=== PATIENT | female | born 1955 | race Caucasian/White ===

== ENCOUNTER 2016-05-04 12:25 | Emergency (ER) | payer MEDICAID, OTHER ==
[~2016-05-04 12:25] MED LIST: /ADVA50050 IN; /FAMO2TA PO; /METO25TAB PO; /PANT40TA; ACET50TA PO; ACET65TA OR; ACTIVASE IV; ADV250INH INH; ALBU83IN IN; ALLO100T; ALLO100T OR; ASPI81TA83 OR; B COTAB PO; BABY81CH; CAPT12.5; COLA100C2; COLA100C2 OR; COMBAER6 INH; EMLA2.5C TOP; FEBU40TA PO; FERR325T; HYDR25TA7; IRON SUCROSE IV; LASIX; LEVO100T7; LEVO250T PO; LOPR100T; LOPR50TA OR; OMEP20TA7 OR; SYNT100T OR; VITAMIN D50000 UNT OR; [UNRECOGNIZED DRUG - CODE] PO; [UNRECOGNIZED DRUG - REMARK]; [UNRECOGNIZED DRUG - REMARK]; [UNRECOGNIZED DRUG - REMARK]; aranesp OR; epogen IV; renvela OR
--- NOTE | 2016-05-04 13:20 | REP ---
Clinical: Trauma. Fall. Technique: AP, lateral, bilateral oblique views of the right wrist. Findings: Acute Colles' fracture of the distal radius and small ulnar styloid fracture appreciated. Underlying osteopenia and degenerative changes. Impression: Acute Colles' fracture of the distal radius and small ulnar styloid fracture. Signed by Aj Lui MD 05/04/2016 01:12 P
[2016-05-04] MEDS ORDERED: ACETAMINOPHEN 325 MG TAB As Ordered ONE (14:04)
--- NOTE | 2016-05-04 14:50 | REP ---
CT Head without contrast HISTORY: Injury COMPARISON: None There is no intraparenchymal hemorrhage, acute infarct, mass or midline shift. The ventricular system and cortical sulci are dilated consistent with minimal volume loss. There is no extra cerebral collection. There is no fracture. The visualized sinuses are clear. IMPRESSION: Minimal volume loss. Signed by Baldomero Casillas MD 05/04/2016 02:42 P
--- NOTE | 2016-05-04 15:07 | REP ---
MAXILLOFACIAL CT WITHOUT CONTRAST: HISTORY: Injury. Bilateral Suzanne cells are present. The sinuses are clear. The ostiomeatal units are patent. The middle and inferior nasal turbinates are partially paradoxical. There is minimal deviation of the nasal septum to the right. The cribriform plate, medial pressley of the orbits and optic canals are intact. There is aeration of the left anterior clinoid process. The carotid canals form a segment of the posterolateral pressley of the sphenoid sinus. There are fractures of the nasal bone. Soft tissue swelling is present. IMPRESSION: 1. There is no acute or chronic sinusitis. 2. Nasal bone fracture. Signed by Baldomero Casillas MD 05/04/2016 03:11 P
--- NOTE | 2016-05-04 15:55 | EDDOCDS ---
Physician Documentation [facility] Name: Sahara Nogueira Age: 60 yrs Sex: Female : 1955 Arrival Date: 05/04/2016 Time: 12:25 Bed TR7 Private MD: NO PRIMARY PHYSICIAN, . Disposition: 05/04/16 15:08 Discharged to Home/Self Care. Impression: Colles' fracture of right radius, Displaced fracture of right ulna styloid process, Fracture of nasal bones, Epistaxis. - Condition is Stable. - Discharge Instructions: Cast or Splint Care, Colles Fracture, Nosebleed. - Prescriptions for Tylenol- Codeine #3 300-30 mg Oral Tablet - take 1 tablet by ORAL route every 6 hours As needed MDD: 4 tabs. may cause drowsiness.; 12 tablet. - Medication Reconciliation, Local Pharmacy Hours form. - Follow up: Emergency Department; When: As needed; Reason: Worsening of conditions. Follow up: [facility]; When: Call to arrange an appointment; Reason: Recheck today's complaints, Continuance of care, To establish care. Follow up: [facility]; When: Call to arrange an appointment; Reason: Wound/Symptom Recheck, Recheck today's complaints, Continuance of care, To establish care. - Problem is new. - Symptoms have improved. Historical: - Allergies: PENICILLINS (Rash); - Home Meds: 1. aspirin 81 mg Oral tab 1 tab once daily 2. vitamin B complex oral cap daily 3. Doc-Q-Lace 100 mg oral cap 1 cap 2 times per day 4. famotidine 20 mg Oral tab 1 tab once daily 5. levothyroxine 150 mcg Oral tab 1 tab once daily 6. metoprolol tartrate 25 mg Oral tab 1 tab once daily 7. Renvela 800 mg oral tab 1 tab 3 times per day with meals 8. Uloric 40 mg oral tab 1 tab once daily - PMHx: Renal Failure with Dialysis; GERD; Thyroid problem; Hypertension; - PSHx: fistula left arm; hole in intestines repaired; - Social history: Smoking status: Patient states was never smoker of tobacco. No barriers to communication noted, The patient speaks fluent Wolof. - Family history: Not pertinent. - : The pt / caregiver states he / she is not on anticoagulants. Home medication list is obtained from the patient. - Exposure Risk Screening:: None identified. Vital Signs: 05/04 12:29 BP 86 / 47; Pulse 51; Resp 18 S; Temp 96.5(O); Pulse Ox 97% on R/A; Weight 119.2 kg / gr2 262.79 lbs (R); Height 5 ft. 3 in. (160.02 cm) (R); Pain 9/10; 13:42 BP 109 / 60; Pulse 55; Resp 20; Temp 96.0(O); Pulse Ox 97% on R/A; Pain 6/10; jml1 15:44 BP 96 / 63; Pulse 62; Resp 18; mk4 12:29 Body Mass Index 46.55 (119.20 kg, 160.02 cm) gr2 Procedures: 15:02 Fracture care/splinting: (Stabilizing Care) Splint applied to right arm using dt4 Scotchcast applied by myself. nurse. Examined by me, post splint application: neurovascular intact, brisk capillary refill noted, Patient tolerated well, short arm volar splint applied to pt's right wrist for Colles fracture. pt tolerated well. . MDM: 12:36 Recheck B/P ordered. dt4 12:38 Wrist, Complete Ordered. EDMS 13:58 Sling ordered. dt4 13:59 CT Head Without Contrast Ordered. EDMS 13:59 CT Maxilofacial W/out Contrast Ordered. EDMS 13:59 Acetaminophen Tablet 975 mg PO once ordered. dt4 14:48 Financial registration complete. [email or web address] 14:49 [facility] Payment Agreement was scanned into [employer] and attached to record. [email or web address] Administered Medications: 14:06 Drug: Acetaminophen 975 mg [acetaminophen 325 mg tablet (3 tabs)] Route: PO; mk4 15:47 Follow up: Response: Pain is decreased mk4 Signatures: Dispatcher [employer] EDMS Shara Richter RN RN kcs King, Margaret, RN RN mk4 Jaimee Mcpherson, PAKassandra PA-Julian dt4 Suly Bennett, Reg Reg ks16 The chart was reviewed and I authenticate all verbal orders and agree with the evaluation and treatment provided.Attachments: 14:49 [facility] Payment Agreement [email or web address] MTDD
--- NOTE | 2016-05-04 15:55 | EDDOCDS ---
Nurse's Notes [facility] Name: Sahara Nogueira Age: 60 yrs Sex: Female : 1955 Arrival Date: 05/04/2016 Time: 12:25 Bed TR7 Private MD: NO PRIMARY PHYSICIAN, . Diagnosis: Colles' fracture of right radius;Displaced fracture of right ulna styloid process;Fracture of nasal bones;Epistaxis Presentation: 05/04 12:33 Presenting complaint: Patient states: she tripped on the rug at the [facility] and injured her right wrist - just happened. Adult Sepsis Screening: The patient does not have new or worsening altered mentation. Patient's respiratory rate is less than 22. Systolic blood pressure is greater than 100. Patient has a qSOFA score of 0- Negative Sepsis Screen. Suicide/Homicide risk assessment- the patient denies having any suicidal and/or homicidal ideations and does not present with any other emotional, behavioral or mental health complaints. Status: Patient is not a gasoline service attendant or dependent. Transition of care: patient was received from [facility]. 12:33 Acuity: KOREY Level 4 [facility] 12:33 Method Of Arrival: Ambulance kcs Triage Assessment: 12:41 General: Appears comfortable, well developed, well nourished, well groomed, Behavior is kcs cooperative, pleasant. Pain: Location: right wrist Pain currently is 1 out of 10 on a pain scale. HIV screening NA for this visit Offered previously. Neurological: Level of Consciousness is awake, alert. Respiratory: Airway is patent Respiratory effort is even, unlabored, Respiratory pattern is regular, symmetrical. Derm: Skin is intact, is healthy with good turgor, Skin is dry, Skin is normal. Historical: - Allergies: PENICILLINS (Rash); - Home Meds: 1. aspirin 81 mg Oral tab 1 tab once daily 2. vitamin B complex oral cap daily 3. Doc-Q-Lace 100 mg oral cap 1 cap 2 times per day 4. famotidine 20 mg Oral tab 1 tab once daily 5. levothyroxine 150 mcg Oral tab 1 tab once daily 6. metoprolol tartrate 25 mg Oral tab 1 tab once daily 7. Renvela 800 mg oral tab 1 tab 3 times per day with meals 8. Uloric 40 mg oral tab 1 tab once daily - PMHx: Renal Failure with Dialysis; GERD; Thyroid problem; Hypertension; - PSHx: fistula left arm; hole in intestines repaired; - Social history: Smoking status: Patient states was never smoker of tobacco. No barriers to communication noted, The patient speaks fluent Tamazight. - Family history: Not pertinent. - : The pt / caregiver states he / she is not on anticoagulants. Home medication list is obtained from the patient. - Exposure Risk Screening:: None identified. Screenin:29 Screening information is obtained from the patient. Abuse/DV Screen: The patient / mk4 caregiver reports he/she is: not in a situation that causes fear, pain or injury. Nutritional screening: On renal diet. home support is adequate. 15:44 Fall risk: No risks identified. Assistance ADL's: requires no assistance with [facility] activities of daily living. Advance Directives: Currently, there is no health care proxy. There is no active DNR order. There is no living will. There is no Power of Loading Unit Operator Seating. Advance directive information has not previously been placed in an [facility] medical record. Further advance directive information is declined. Assessment: 13:29 General: Appears first contact with pt as she arrives from [facility]. mk4 13:30 General: Appears uncomfortable. Pain: Location: right wrist and palmar aspect of right mk4 forearm. Neurological: Level of Consciousness is awake, alert, Reports striking her head when she fell at the Dr office striking the left corner of her forehead at hairline and nose, small amount bloody nose on arrival. Musculoskeletal: Circulation, motion, and sensation intact Capillary refill < 3 seconds in right fingers Bony deformity noted of palmar aspect of right forearm Swelling present in palmar aspect of right forearm. 15:44 General: Appears in no apparent distress, comfortable, Behavior is cooperative, sling mk4 est to right arm , distal csm right fingers intact, no further nose bleed. Neurological: Level of Consciousness is awake, alert. Respiratory: Airway is patent Respiratory effort is even, unlabored, Respiratory pattern is regular. 15:50 General: Appears in no apparent distress. mk4 Vital Signs: 12:29 BP 86 / 47; Pulse 51; Resp 18 S; Temp 96.5(O); Pulse Ox 97% on R/A; Weight 119.2 kg gr2 (R); Height 5 ft. 3 in. (160.02 cm) (R); Pain 9/10; 13:42 BP 109 / 60; Pulse 55; Resp 20; Temp 96.0(O); Pulse Ox 97% on R/A; Pain 6/10; jml1 15:44 BP 96 / 63; Pulse 62; Resp 18; mk4 12:29 Body Mass Index 46.55 (119.20 kg, 160.02 cm) gr2 Vitals: 12:29 Log In Time: May 04, 2016 at 12:29. gr2 ED Course: 12:28 Patient visited by Taurus Neff. gr2 12:28 NO PRIMARY PHYSICIAN, . is Private Physician. gr2 12:28 Patient moved to Waiting gr2 12:33 Patient visited by Taurus Neff. gr2 12:33 Patient moved to Pre RCE gr2 12:35 Triage Initiated kcs 12:41 wrist splinted by EMS at scene. kcs 13:26 Patient moved to I / ms18 13:29 The patient / caregiver is instructed regarding the plan of care and ED course. mk4 13:29 No IV's were initiated during this patient's visit. mk4 13:34 Patient visited by Natalia Diaz RN. mk4 13:38 Patient visited by Natalia Diaz RN. mk4 13:41 Jaimee Mcpherson PA-C is PHCP. dt4 13:41 Viviana Martinez MD is Attending Physician. dt4 13:41 Patient visited by Jaimee Mcpherson PA-C. dt4 13:59 Wrist, Complete Returned. EDMS 14:00 Assist provider with fracture care of palmar aspect of right forearm Fracture is mk4 closed. Obvious deformity is noted. Circulation, motor and sensation is intact. Immoblized with Ortho Glass splint Performed by Jaimee Mcpherson PA-C Post immobilization, circulation, motor and sensation remain intact. Patient tolerated well. 14:14 Patient visited by Natalia Diaz RN. mk4 14:46 Patient visited by Natalia Diaz RN. mk4 14:49 [facility] Payment Agreement was scanned into [employer] and attached to record. ks16 15:06 [facility] is Referral Physician. dt4 15:09 [facility] is Referral Physician. dt4 15:39 CT Head Without Contrast Returned. EDMS 15:39 CT Maxilofacial W/out Contrast Returned. EDMS 15:44 Patient moved to TR7 mk4 Administered Medications: 14:06 Drug: Acetaminophen 975 mg [acetaminophen 325 mg tablet (3 tabs)] Route: PO; mk4 15:47 Follow up: Response: Pain is decreased mk4 Order Results: Radiology Order: Wrist, Complete Test: Wrist, Complete REASON FOR EXAMINATION: RIGHT WRIST INJURY; Clinical: Trauma. Fall.; ; Technique: AP, lateral, bilateral oblique views of the right wrist.; ; Findings:; Acute Colles' fracture of the distal radius and small ulnar styloid fracture; appreciated. Underlying osteopenia and degenerative changes.; ; Impression:; Acute Colles' fracture of the distal radius and small ulnar styloid fracture.; ; ; Signed by; Aj Lui MD 05/04/2016 01:12 P; Radiology Order: CT Head Without Contrast Test: CT Head Without Contrast REASON FOR EXAMINATION: fall, head injury; CT Head without contrast; ; HISTORY: Injury; ; COMPARISON: None; ; There is no intraparenchymal hemorrhage, acute infarct, mass or midline shift.; The ventricular system and cortical sulci are dilated consistent with minimal; volume loss. There is no extra cerebral collection. There is no fracture. The; visualized sinuses are clear.; ; IMPRESSION: Minimal volume loss.; ; ; ; ; Signed by; Baldomero Casillas MD 05/04/2016 02:42 P; Radiology Order: CT Maxilofacial W/out Contrast Test: CT Maxilofacial W/out Contrast REASON FOR EXAMINATION: falal, head/nose injury; MAXILLOFACIAL CT WITHOUT CONTRAST:; ; HISTORY: Injury.; ; Bilateral Suzanne cells are present. The sinuses are clear. The ostiomeatal units; are patent. The middle and inferior nasal turbinates are partially paradoxical.; There is minimal deviation of the nasal septum to the right. The cribriform; plate, medial pressley of the orbits and optic canals are intact. There is aeration; of the left anterior clinoid process. The carotid canals form a segment of the; posterolateral pressley of the sphenoid sinus. There are fractures of the nasal; bone. Soft tissue swelling is present.; ; IMPRESSION:; ; 1. There is no acute or chronic sinusitis.; ; 2. Nasal bone fracture.; ; ; Signed by; Baldomero Casillas MD 05/04/2016 03:11 P; Outcome: 15:08 Discharge ordered by Provider. dt4 15:53 Discharge Assessment: Patient awake, alert and oriented x 3. No cognitive and/or mk4 functional deficits noted. Patient verbalized understanding of disposition instructions. Patient awake and alert. Discharge Assessment: patient administered narcotics - no. The following High Risk Discharge criteria are identified: None. Condition: good. CT Study completed. Property sent home with patient. 15:54 Patient left the ED. mk4 Signatures: Dispatcher MedHost EDShara Anderson, RN RN kcs Darion Aceves jml1 Taurus Neff gr2 Natalia Diaz RN RN mk4 Jaimee Mcpherson, PA-C PA-C dt4 Shannon Toledo RN RN ms18 Suly Bennett, Reg Reg ks16 Corrections: (The following items were deleted from the chart) 14:12 14:09 General: Appears mk4 4 MTDD
--- NOTE | 2016-05-06 16:55 | EDDOCDS ---
Physician Documentation [facility] Name: Sahara Nogueira Age: 60 yrs Sex: Female : 1955 Arrival Date: 05/04/2016 Time: 12:25 Bed TR7 Private MD: NO PRIMARY PHYSICIAN, . Disposition: 05/04/16 15:08 Discharged to Home/Self Care. Impression: Colles' fracture of right radius, Displaced fracture of right ulna styloid process, Fracture of nasal bones, Epistaxis. - Condition is Stable. - Discharge Instructions: Cast or Splint Care, Colles Fracture, Nosebleed. - Prescriptions for Tylenol- Codeine #3 300-30 mg Oral Tablet - take 1 tablet by ORAL route every 6 hours As needed MDD: 4 tabs. may cause drowsiness.; 12 tablet. - Medication Reconciliation, Local Pharmacy Hours form. - Follow up: Emergency Department; When: As needed; Reason: Worsening of conditions. Follow up: [facility]; When: Call to arrange an appointment; Reason: Recheck today's complaints, Continuance of care, To establish care. Follow up: [facility]; When: Call to arrange an appointment; Reason: Wound/Symptom Recheck, Recheck today's complaints, Continuance of care, To establish care. - Problem is new. - Symptoms have improved. Historical: - Allergies: PENICILLINS (Rash); - Home Meds: 1. aspirin 81 mg Oral tab 1 tab once daily 2. vitamin B complex oral cap daily 3. Doc-Q-Lace 100 mg oral cap 1 cap 2 times per day 4. famotidine 20 mg Oral tab 1 tab once daily 5. levothyroxine 150 mcg Oral tab 1 tab once daily 6. metoprolol tartrate 25 mg Oral tab 1 tab once daily 7. Renvela 800 mg oral tab 1 tab 3 times per day with meals 8. Uloric 40 mg oral tab 1 tab once daily - PMHx: Renal Failure with Dialysis; GERD; Thyroid problem; Hypertension; - PSHx: fistula left arm; hole in intestines repaired; - Social history: Smoking status: Patient states was never smoker of tobacco. No barriers to communication noted, The patient speaks fluent Swedish. - Family history: Not pertinent. - : The pt / caregiver states he / she is not on anticoagulants. Home medication list is obtained from the patient. - Exposure Risk Screening:: None identified. Vital Signs: 05/04 12:29 BP 86 / 47; Pulse 51; Resp 18 S; Temp 96.5(O); Pulse Ox 97% on R/A; Weight 119.2 kg / gr2 262.79 lbs (R); Height 5 ft. 3 in. (160.02 cm) (R); Pain 9/10; 13:42 BP 109 / 60; Pulse 55; Resp 20; Temp 96.0(O); Pulse Ox 97% on R/A; Pain 6/10; jml1 15:44 BP 96 / 63; Pulse 62; Resp 18; mk4 12:29 Body Mass Index 46.55 (119.20 kg, 160.02 cm) gr2 Procedures: 15:02 Fracture care/splinting: (Stabilizing Care) Splint applied to right arm using dt4 Scotchcast applied by myself. nurse. Examined by me, post splint application: neurovascular intact, brisk capillary refill noted, Patient tolerated well, short arm volar splint applied to pt's right wrist for Colles fracture. pt tolerated well. . MDM: 12:36 Recheck B/P ordered. dt4 12:38 Wrist, Complete Ordered. EDMS 13:58 Sling ordered. dt4 13:59 CT Head Without Contrast Ordered. EDMS 13:59 CT Maxilofacial W/out Contrast Ordered. EDMS 13:59 Acetaminophen Tablet 975 mg PO once ordered. dt4 14:48 Financial registration complete. [facility] 14:49 [facility] Payment Agreement was scanned into [employer] and attached to record. [facility] 05/05 10:52 T-Sheet-- Draft Copy was scanned into [employer] and attached to record. 10:52 Radiology Report was scanned into [employer] and attached to record. Administered Medications: 05/04 14:06 Drug: Acetaminophen 975 mg [acetaminophen 325 mg tablet (3 tabs)] Route: PO; mk4 15:47 Follow up: Response: Pain is decreased mk4 Signatures: Dispatcher [employer] EDMS Shara Richter RN RN kcs Linda Saez, Reg Reg gb Natalia Diaz RN RN mk4 Jaimee Mcpherson PA-C PA-C dt4 Suly Bennett, Reg Reg ks16 The chart was reviewed and I authenticate all verbal orders and agree with the evaluation and treatment provided.Attachments: 14:49 [facility] Payment Agreement [email or web address] 05/05 10:52 T-Sheet-- Draft Copy gb Chart Complete MTDD
--- NOTE | 2016-05-06 16:55 | EDDOCDS ---
Physician Documentation [facility] Name: Sahara Nogueira Age: 60 yrs Sex: Female : 1955 Arrival Date: 05/04/2016 Time: 12:25 Bed TR7 Private MD: NO PRIMARY PHYSICIAN, . Disposition: 05/04/16 15:08 Discharged to Home/Self Care. Impression: Colles' fracture of right radius, Displaced fracture of right ulna styloid process, Fracture of nasal bones, Epistaxis. - Condition is Stable. - Discharge Instructions: Cast or Splint Care, Colles Fracture, Nosebleed. - Prescriptions for Tylenol- Codeine #3 300-30 mg Oral Tablet - take 1 tablet by ORAL route every 6 hours As needed MDD: 4 tabs. may cause drowsiness.; 12 tablet. - Medication Reconciliation, Local Pharmacy Hours form. - Follow up: Emergency Department; When: As needed; Reason: Worsening of conditions. Follow up: [facility]; When: Call to arrange an appointment; Reason: Recheck today's complaints, Continuance of care, To establish care. Follow up: [facility]; When: Call to arrange an appointment; Reason: Wound/Symptom Recheck, Recheck today's complaints, Continuance of care, To establish care. - Problem is new. - Symptoms have improved. Historical: - Allergies: PENICILLINS (Rash); - Home Meds: 1. aspirin 81 mg Oral tab 1 tab once daily 2. vitamin B complex oral cap daily 3. Doc-Q-Lace 100 mg oral cap 1 cap 2 times per day 4. famotidine 20 mg Oral tab 1 tab once daily 5. levothyroxine 150 mcg Oral tab 1 tab once daily 6. metoprolol tartrate 25 mg Oral tab 1 tab once daily 7. Renvela 800 mg oral tab 1 tab 3 times per day with meals 8. Uloric 40 mg oral tab 1 tab once daily - PMHx: Renal Failure with Dialysis; GERD; Thyroid problem; Hypertension; - PSHx: fistula left arm; hole in intestines repaired; - Social history: Smoking status: Patient states was never smoker of tobacco. No barriers to communication noted, The patient speaks fluent Turkish. - Family history: Not pertinent. - : The pt / caregiver states he / she is not on anticoagulants. Home medication list is obtained from the patient. - Exposure Risk Screening:: None identified. Vital Signs: 05/04 12:29 BP 86 / 47; Pulse 51; Resp 18 S; Temp 96.5(O); Pulse Ox 97% on R/A; Weight 119.2 kg / gr2 262.79 lbs (R); Height 5 ft. 3 in. (160.02 cm) (R); Pain 9/10; 13:42 BP 109 / 60; Pulse 55; Resp 20; Temp 96.0(O); Pulse Ox 97% on R/A; Pain 6/10; jml1 15:44 BP 96 / 63; Pulse 62; Resp 18; mk4 12:29 Body Mass Index 46.55 (119.20 kg, 160.02 cm) gr2 Procedures: 15:02 Fracture care/splinting: (Stabilizing Care) Splint applied to right arm using dt4 Scotchcast applied by myself. nurse. Examined by me, post splint application: neurovascular intact, brisk capillary refill noted, Patient tolerated well, short arm volar splint applied to pt's right wrist for Colles fracture. pt tolerated well. . MDM: 12:36 Recheck B/P ordered. dt4 12:38 Wrist, Complete Ordered. EDMS 13:58 Sling ordered. dt4 13:59 CT Head Without Contrast Ordered. EDMS 13:59 CT Maxilofacial W/out Contrast Ordered. EDMS 13:59 Acetaminophen Tablet 975 mg PO once ordered. dt4 14:48 Financial registration complete. [facility] 14:49 [facility] Payment Agreement was scanned into [employer] and attached to record. [facility] 05/05 10:52 T-Sheet-- Draft Copy was scanned into [employer] and attached to record. 10:52 Radiology Report was scanned into [employer] and attached to record. Administered Medications: 05/04 14:06 Drug: Acetaminophen 975 mg [acetaminophen 325 mg tablet (3 tabs)] Route: PO; mk4 15:47 Follow up: Response: Pain is decreased mk4 Signatures: Dispatcher [employer] EDMS Shara Richter RN RN kcs Linda Saez, Reg Reg gb Natalia Diaz RN RN mk4 Jaimee Mcpherson PA-C PA-C dt4 Suly Bennett, Reg Reg [email or web address] The chart was reviewed and I authenticate all verbal orders and agree with the evaluation and treatment provided.Attachments: 14:49 [facility] [place] Agreement [email or web address] 05/05 10:52 T-Sheet-- Draft Copy gb Chart Complete MTDD
--- NOTE | 2016-05-06 16:55 | EDDOCDS ---
Nurse's Notes [facility] Name: Sahara Nogueira Age: 60 yrs Sex: Female : 1955 Arrival Date: 05/04/2016 Time: 12:25 Bed TR7 Private MD: NO PRIMARY PHYSICIAN, . Diagnosis: Colles' fracture of right radius;Displaced fracture of right ulna styloid process;Fracture of nasal bones;Epistaxis Presentation: 05/04 12:33 Presenting complaint: Patient states: she tripped on the rug at the [facility] and injured her right wrist - just happened. Adult Sepsis Screening: The patient does not have new or worsening altered mentation. Patient's respiratory rate is less than 22. Systolic blood pressure is greater than 100. Patient has a qSOFA score of 0- Negative Sepsis Screen. Suicide/Homicide risk assessment- the patient denies having any suicidal and/or homicidal ideations and does not present with any other emotional, behavioral or mental health complaints. Status: Patient is not a passenger service representative or dependent. Transition of care: patient was received from [facility]. 12:33 Acuity: KOREY Level 4 [facility] 12:33 Method Of Arrival: Ambulance kcs Triage Assessment: 12:41 General: Appears comfortable, well developed, well nourished, well groomed, Behavior is kcs cooperative, pleasant. Pain: Location: right wrist Pain currently is 1 out of 10 on a pain scale. HIV screening NA for this visit Offered previously. Neurological: Level of Consciousness is awake, alert. Respiratory: Airway is patent Respiratory effort is even, unlabored, Respiratory pattern is regular, symmetrical. Derm: Skin is intact, is healthy with good turgor, Skin is dry, Skin is normal. Historical: - Allergies: PENICILLINS (Rash); - Home Meds: 1. aspirin 81 mg Oral tab 1 tab once daily 2. vitamin B complex oral cap daily 3. Doc-Q-Lace 100 mg oral cap 1 cap 2 times per day 4. famotidine 20 mg Oral tab 1 tab once daily 5. levothyroxine 150 mcg Oral tab 1 tab once daily 6. metoprolol tartrate 25 mg Oral tab 1 tab once daily 7. Renvela 800 mg oral tab 1 tab 3 times per day with meals 8. Uloric 40 mg oral tab 1 tab once daily - PMHx: Renal Failure with Dialysis; GERD; Thyroid problem; Hypertension; - PSHx: fistula left arm; hole in intestines repaired; - Social history: Smoking status: Patient states was never smoker of tobacco. No barriers to communication noted, The patient speaks fluent Vietnamese. - Family history: Not pertinent. - : The pt / caregiver states he / she is not on anticoagulants. Home medication list is obtained from the patient. - Exposure Risk Screening:: None identified. Screenin:29 Screening information is obtained from the patient. Abuse/DV Screen: The patient / mk4 caregiver reports he/she is: not in a situation that causes fear, pain or injury. Nutritional screening: On renal diet. home support is adequate. 15:44 Fall risk: No risks identified. Assistance ADL's: requires no assistance with [facility] activities of daily living. Advance Directives: Currently, there is no health care proxy. There is no active DNR order. There is no living will. There is no Power of Circuit Court Magistrate. Advance directive information has not previously been placed in an [facility] medical record. Further advance directive information is declined. Assessment: 13:29 General: Appears first contact with pt as she arrives from [facility]. mk4 13:30 General: Appears uncomfortable. Pain: Location: right wrist and palmar aspect of right mk4 forearm. Neurological: Level of Consciousness is awake, alert, Reports striking her head when she fell at the Dr office striking the left corner of her forehead at hairline and nose, small amount bloody nose on arrival. Musculoskeletal: Circulation, motion, and sensation intact Capillary refill < 3 seconds in right fingers Bony deformity noted of palmar aspect of right forearm Swelling present in palmar aspect of right forearm. 15:44 General: Appears in no apparent distress, comfortable, Behavior is cooperative, sling mk4 est to right arm , distal csm right fingers intact, no further nose bleed. Neurological: Level of Consciousness is awake, alert. Respiratory: Airway is patent Respiratory effort is even, unlabored, Respiratory pattern is regular. 15:50 General: Appears in no apparent distress. mk4 Vital Signs: 12:29 BP 86 / 47; Pulse 51; Resp 18 S; Temp 96.5(O); Pulse Ox 97% on R/A; Weight 119.2 kg gr2 (R); Height 5 ft. 3 in. (160.02 cm) (R); Pain 9/10; 13:42 BP 109 / 60; Pulse 55; Resp 20; Temp 96.0(O); Pulse Ox 97% on R/A; Pain 6/10; jml1 15:44 BP 96 / 63; Pulse 62; Resp 18; mk4 12:29 Body Mass Index 46.55 (119.20 kg, 160.02 cm) gr2 Vitals: 12:29 Log In Time: May 04, 2016 at 12:29. gr2 ED Course: 12:28 Patient visited by Taurus Neff. gr2 12:28 NO PRIMARY PHYSICIAN, . is Private Physician. gr2 12:28 Patient moved to Waiting gr2 12:33 Patient visited by Taurus Neff. gr2 12:33 Patient moved to Pre RCE gr2 12:35 Triage Initiated kcs 12:41 wrist splinted by EMS at scene. kcs 13:26 Patient moved to I / ms18 13:29 The patient / caregiver is instructed regarding the plan of care and ED course. mk4 13:29 No IV's were initiated during this patient's visit. mk4 13:34 Patient visited by Natalia Diaz RN. mk4 13:38 Patient visited by Natalia Diaz RN. mk4 13:41 Jaimee Mcpherson PA-C is PHCP. dt4 13:41 Viviana Martinez MD is Attending Physician. dt4 13:41 Patient visited by Jaimee Mcpherson PA-C. dt4 13:59 Wrist, Complete Returned. EDMS 14:00 Assist provider with fracture care of palmar aspect of right forearm Fracture is mk4 closed. Obvious deformity is noted. Circulation, motor and sensation is intact. Immoblized with Ortho Glass splint Performed by Jaimee Mcpherson PA-C Post immobilization, circulation, motor and sensation remain intact. Patient tolerated well. 14:14 Patient visited by Natalia Diaz RN. mk4 14:46 Patient visited by Natalia Diaz RN. mk4 14:49 [facility] Payment Agreement was scanned into [employer] and attached to record. ks16 15:06 [facility] is Referral Physician. dt4 15:09 [facility] is Referral Physician. dt4 15:39 CT Head Without Contrast Returned. EDMS 15:39 CT Maxilofacial W/out Contrast Returned. EDMS 15:44 Patient moved to TR7 4 05/05 10:52 T-Sheet-- Draft Copy was scanned into [employer] and attached to record. gb 10:52 Radiology Report was scanned into [employer] and attached to record. gb Administered Medications: 05/04 14:06 Drug: Acetaminophen 975 mg [acetaminophen 325 mg tablet (3 tabs)] Route: PO; mk4 15:47 Follow up: Response: Pain is decreased 4 Order Results: Radiology Order: Wrist, Complete Test: Wrist, Complete REASON FOR EXAMINATION: RIGHT WRIST INJURY; Clinical: Trauma. Fall.; ; Technique: AP, lateral, bilateral oblique views of the right wrist.; ; Findings:; Acute Colles' fracture of the distal radius and small ulnar styloid fracture; appreciated. Underlying osteopenia and degenerative changes.; ; Impression:; Acute Colles' fracture of the distal radius and small ulnar styloid fracture.; ; ; Signed by; Aj Lui MD 05/04/2016 01:12 P; Radiology Order: CT Head Without Contrast Test: CT Head Without Contrast REASON FOR EXAMINATION: fall, head injury; CT Head without contrast; ; HISTORY: Injury; ; COMPARISON: None; ; There is no intraparenchymal hemorrhage, acute infarct, mass or midline shift.; The ventricular system and cortical sulci are dilated consistent with minimal; volume loss. There is no extra cerebral collection. There is no fracture. The; visualized sinuses are clear.; ; IMPRESSION: Minimal volume loss.; ; ; ; ; Signed by; Baldomero Casillas MD 05/04/2016 02:42 P; Radiology Order: CT Maxilofacial W/out Contrast Test: CT Maxilofacial W/out Contrast REASON FOR EXAMINATION: falal, head/nose injury; MAXILLOFACIAL CT WITHOUT CONTRAST:; ; HISTORY: Injury.; ; Bilateral Suzanne cells are present. The sinuses are clear. The ostiomeatal units; are patent. The middle and inferior nasal turbinates are partially paradoxical.; There is minimal deviation of the nasal septum to the right. The cribriform; plate, medial pressley of the orbits and optic canals are intact. There is aeration; of the left anterior clinoid process. The carotid canals form a segment of the; posterolateral pressley of the sphenoid sinus. There are fractures of the nasal; bone. Soft tissue swelling is present.; ; IMPRESSION:; ; 1. There is no acute or chronic sinusitis.; ; 2. Nasal bone fracture.; ; ; Signed by; Baldomero Casillas MD 05/04/2016 03:11 P; Outcome: 15:08 Discharge ordered by Provider. dt4 15:53 Discharge Assessment: Patient awake, alert and oriented x 3. No cognitive and/or mk4 functional deficits noted. Patient verbalized understanding of disposition instructions. Patient awake and alert. Discharge Assessment: patient administered narcotics - no. The following High Risk Discharge criteria are identified: None. Condition: good. CT Study completed. Property sent home with patient. 15:54 Patient left the ED. mk4 Signatures: Dispatcher [employer] EDMS Shara Richter, RN RN [facility] Linda Saez, Reg Reg gb Darion Aceves jml1 Taurus Neff gr2 Natalia Diaz RN RN mk4 Jaimee Mcpherson, PA-C PA-C dt4 Shannon Toledo RN RN ms18 Suly Bennett, Reg Reg ks16 Corrections: (The following items were deleted from the chart) 14:12 14:09 General: Appears mk4 mk4 Chart Complete MTDD
== END 2016-05-04 15:54 | disposition home or self-care (01) ==
LOC: M ED 12:25
DX: S52.531A Colles' fracture of right radius, initial encounter for closed fracture (principal); S02.2XXA Fracture of nasal bones, initial encounter for closed fracture; S52.611A Displaced fracture of right ulna styloid process, initial encounter for closed fracture; N18.9 Chronic kidney disease, unspecified; K21.9 Gastro-esophageal reflux disease without esophagitis; E07.9 Disorder of thyroid, unspecified; I12.9 Hypertensive chronic kidney disease with stage 1 through stage 4 chronic kidney disease, or unspecified chronic kidney disease; Z99.2 Dependence on renal dialysis; Z79.82 Long term (current) use of aspirin; Z79.899 Other long term (current) drug therapy; Z88.0 Allergy status to penicillin; W01.198A Fall on same level from slipping, tripping and stumbling with subsequent striking against other object, initial encounter; Y92.531 Health care provider office as the place of occurrence of the external cause; Y93.01 Activity, walking, marching and hiking; Y99.9 Unspecified external cause status